=== PATIENT | male | born 1975 | race Two or more races ===

== ENCOUNTER 2025-05-18 13:28 | Emergency (ER) | payer MEDICAID, SELFPAY ==
[2025-05-18 14:06] VITALS: BP 148/87; PULSE 60; RESP 20; TEMP 36.7; O2SAT 98; BMI 29.8
--- NOTE | 2025-05-18 14:45 | EDNOTE_ITS ---
<Statement entered by Deepthi Montenegro MD - 05/18/25 16:31> As co-signing physician, I was present and available for consult prn. I concur with the plan and care as documented by the midlevel provider. ED General RME/HPI General Chief complaint: Skin/Abscess/Foreign Body Stated complaint: RASH THROUGHOUT BODY Time Seen by Provider: 05/18/25 14:10 Arrival date/time: 05/18/25 13:28 CC: Itch to the elbows advised HPI ongoing for the past week, the patient has long history of eczema, typically it is absent with this flare has been annoying, tape is using topical agents from his PCP have not been helping. Patient denies fever chills chest pain shortness of breath or difficulty genesis thing. Related Data Previous Rx's ?Medication ?Instructions ?Recorded naproxen 500 mg tablet (Naprosyn) 500 mg PO BID #30 ta bs 02/08/20 cyclobenzaprine 5 mg tablet 5 mg PO TID PRN muscle spa sm #30 01/02/23 tabs prednisone 20 mg tablet See Taper PO BID 5 days #10 tabs 05/18/25 Allergies Allergy/AdvReac Type Severity Reaction Status Date / Time No Known Allergies Allergy Verified 01/02/23 08:17 Review of Systems Review of Systems Narrative Review of Systems: GEN: No fever, no chills, no weight loss EYES: No discharge, no visual changes, no pain HEENT: No ear pain, no congestion, no sore throat PULM: No shortness of breath, no cough, no congestion CV: No chest pain, no dyspnea on exertion, no palpitations GI: No nausea, no vomiting, no diarrhea, no pain, no constipation : No frequency, no urgency, no dysuria MUSC/SKEL: No joint pain, no back pain SKIN: No rash PSYCH: No hallucinations, no depression HEME/LYMPH: No easy bleeding or bruising tendencies NEURO: No weakness, no headache Past Medical History Past Medical History NEUROLOGIC: Negative Neurological Disorders CARDIAC: Positive Cardiac Disorders and Hypertension; Negative Congestive Heart Failure RESPIRATORY: Negative Chronic Obstructive Pulmonary Disease (COPD) or Asthma GASTROINTESTINAL: Negative Gastrointestinal Disorders GENITOURINARY: Negative Genitourinary Disorders or Renal Disease MUSCULOSKELETAL: Negative Musculoskeletal Disorders ENDOCRINE: Negative Endocrine Disorders, Diabetes Mellitus Type 1 or Diabetes Mellitus Type 2 HEMATOLOGIC: Negative Blood Disorders or Sickle Cell Disease Social History SMOKING STATUS: Current every day smoker ED Exam Narrative Physical exam: [General: Not in any acute distress Head normocephalic HEENT: Within acceptable limits Neck is supple nontender Chest equal chest rise nontender to palpation Respiratory: Clear to auscultation no wheezes crackles or rubs CV: Rate rhythm is regular no murmurs rubs or clicks Abdomen is distended secondary to body habitus soft nontender no masses positive bowel sounds all 4 quadrants Back: No CVA tenderness no spinous process tenderness from cervical spine thoracic and lumbar spine Skin: Scaly patches to the antecubital and forearms of both legs minimal areas to the anterior thighs. No face neck or axilla involvement. Otherwise skin is intact no petechiae rash induration ulceration or crepitus Extremities: Moving all extremity against resistance cap refill less than 2 seconds neurosensory intact Neuro: Awake alert oriented x3 Glascow coma 15 no focal deficits] Course Quality Measures none Vital Signs Vital signs: Vital Signs Temperature 98.1 F 05/18/25 14:06 Pulse Rate 60 05/18/25 14:06 Respiratory Rate 20 05/18/25 14:06 Blood Pressure 148/87 H 05/18/25 14:06 Pulse Oximetry (%) 98 05/18/25 14:06 Oxygen Delivery Method Room Air 05/18/25 14:06 Discharge Plan Plan Patient Disposition: HOME (Self Care) Patient condition on transfer: Stable Prescriptions/Referrals Prescriptions/Med Rec: New prednisone 20 mg tablet See Taper PO BID 5 Days Qty: 10 0RF Taper: Prednisone Taper 20 mg DAILY for 2 Days and 0 Hour 10 mg DAILY for 2 Days and 0 Hour 5 mg DAILY for 7 Days and 0 Hour No Action naproxen [Naprosyn] 500 mg tablet 500 mg PO BID Qty: 30 0RF cyclobenzaprine 5 mg tablet 5 mg PO TID PRN (Reason: muscle spasm) Qty: 30 0RF Referrals: William Mckay MD [Physician, Family Practice] - In 1 week Problem List Clinical Impression: Eczema Patient/Caregiver Discharge Instructions Other Activity Instructions:: Take the medication as prescribed follow-up with your primary care doctor consider a biologic for avoidance of outbreaks. Education Materials: What Is Atopic Dermatitis?, Managing Atopic Dermatitis (Eczema), ED Atopic Dermatitis (Adult) Print Language: Greek Stand Alone Forms: [employer] Info., Patient Portal Info Letter, Work/School Release PA/[employer] Supervising Physician PA/[employer] Supervising Physician: Nitin Salguero ENP
--- NOTE | 2025-05-18 17:38 | PC.NURSE ---
pt left without d/c papers
== END 2025-05-18 17:39 | disposition home or self-care (01) ==
LOC: SERX 15:09
PROVIDERS: Emergency Provider Emergency Medicine; PCP Family Medicine
DX: L30.9 Dermatitis, unspecified (principal)
CPT/HCPCS: 99281